=== PATIENT | male | born 1955 | race Caucasian/White ===

== ENCOUNTER 2023-06-30 23:36 | Emergency (ER) | payer OTHER, SELFPAY ==
[2023-06-30 23:44] VITALS: BP 127/80; PULSE 86; RESP 16; TEMP 36.6; O2SAT 97
--- NOTE | 2023-06-30 23:57 | PC.NURSE ---
Pt. woke up this AM with redness to left cheek area, states into this evening swelling noted to left neck and behind ear. states pt. has had problems with dry ears but has not had any other issues. Pt. states took Benadryl earlier today for redness with no relief. Pt. resting in bed with at bedside. pt. denies any needs at this time.
[2023-07-01] MEDS: METHYLPREDNISOLONE SOD SUCC PF 125 MG/2 ML VIAL IVP (00:33)
[2023-07-01] MEDS: CLINDAMYCIN PHOSPHATE/D5W 900 MG/50 ML PIGGYBACK 100 MG IV (00:35)
[2023-07-01 00:44] LABS: Basophils Absolute Auto 0.1 10^3/uL (0.0-0.1); Basophils Percent Auto 0.6 % (0.2-2.0); Eosinophils Absolute Auto 0.1 10^3/uL (0.0-0.7); Eosinophils Percent Auto 1.1 % (0.9-7.0); Hematocrit 41.8 % (42.0-54.0); Hemoglobin 13.7 g/dL (14.0-18.0); Immature Granulocytes Abs Auto 0.03 10^3/uL (0.00-0.03); Immature Granulocytes Pct Auto 0.3 % (0.0-0.5); Lymphocytes Absolute Auto 1.8 10^3/uL (1.2-3.8); Lymphocytes Percent Auto 18.2 % (20.5-60.0); Mean Corpuscular HGB Conc 32.8 g/dL (29.9-35.2); Mean Corpuscular Hemoglobin 27.8 pg (25.9-34.0); Mean Corpuscular Volume 84.8 fL (80.0-94.0); Mean Platelet Volume 10.3 fL (9.5-13.5); Monocytes Absolute Auto 1.4 10^3/uL (0.3-0.8); Monocytes Percent Auto 13.8 % (1.7-12.0); Neutrophils Absolute Auto 6.5 10^3/uL (1.4-6.5); Platelet Count 265 10^3/uL (150-450); Red Blood Count 4.93 10^6/uL (4.70-6.10); Red Cell Distribution Width 13.6 % (11.0-15.0); White Blood Count 9.9 10^3/uL (4.0-11.0)
[2023-07-01 00:51] LABS: Erythrocyte Sedimentation Rate 43 mm/hr (<=20)
[2023-07-01 01:00] LABS: Anion Gap 13.8; BUN Creatinine Ratio 11.2; Calcium 9.2 mg/dL (8.5-10.1); Chloride 105 mmol/L (98-107); Estimated GFR (African America >60 (>=60); Estimated GFR (Non-African Ame >60 (>=60); Glucose 113 mg/dL (74-106); Potassium 3.8 mmol/L (3.5-5.1); Sodium 139 mmol/L (136-145)
[2023-07-01 01:01] LABS: C Reactive Protein 3.68 mg/dL (<=0.50)
--- NOTE | 2023-07-01 01:04 | ED.GENADUL1 ---
HPI - General Adult General Chief complaint: Skin/Abscess/Foreign Body Stated complaint: EAR PAIN Time Seen by Provider: 06/30/23 23:45 Source: patient and family Mode of arrival: walk-in History of Present Illness HPI narrative: Patient developed pain and redness behind the left ear overnight and then the redness spread rapidly throughout the day. He now has redness to the left scalp, left cheek and upper left neack laterally. The external ear has been dry and flaky for some time . No recent injury. No systemic complaints such as fever or vomiting. He is not a diabetic. He took some Benadryl thinking that it might be an allergic reaction of some kind but nothing happened after taking the bendaryl/no improvement. Related Data Home Medications Medication Instructions Recorded Confirmed No Known Home Medications 06/30/23 06/30/23 Previous Rx's Medication Instructions Recorded clindamycin HCl 150 mg capsule 450 mg (3 x 150 mg) PO TID 7 days 07/01/23 #63 caps Allergies Allergy/AdvReac Type Severity Reaction Status Date / Time No Known Drug Allergies Allergy Verified 06/30/23 23:49 PFSH PFS Social History Smoking status: Never smoker Exam Narrative Exam Narrative: Nurses notes and vital signs reviewed and patient is not hypoxic. afebrile General: Well-appearing and in no apparent distress. Skin: Warm, dry, no pallor noted. Head: Normocephalic, atraumatic. Neck: Supple, non-tender. No submental or submandibular fullness, tenderness, swelling or firmness. No cervical lymphadenopathy anteriorly or posteriorly. Eye: Pupils are equal, round and EOMI. No scleral icterus. Ears, Nose, Mouth, and Throat: Left TM and EAC are clear, no posterior oropharynx erythema or nasal mucosal hypertrophy, uvula is mid-line Oral mucosa is moist Cardiovascular: Regular Rate and Rhythm without murmur, gallop or rub. Respiratory: No accessory muscle use or respiratory distress. Lungs are clear to auscultation, no wheezing, rales or rhonchi Musculoskeletal: normal ROM Neurological: A&O x4. No cranial nerve dysfunction observed. No truncal ataxia. Moves all extremities. Sensation intact. Psychiatric: Cooperative and interactive. Normal mood and affect. Constitutional Vital Signs, click to edit/add: Last Vital Signs Temp 97.8 F 06/30/23 23:44 Pulse 86 06/30/23 23:44 Resp 16 06/30/23 23:44 BP 127/80 06/30/23 23:44 Pulse Ox 97 06/30/23 23:44 O2 Del Method Room Air 06/30/23 23:55 Course Vital Signs Vital signs: Vital Signs Temperature 97.8 F 06/30/23 23:44 Pulse Rate 86 06/30/23 23:44 Respiratory Rate 16 06/30/23 23:44 Blood Pressure 127/80 06/30/23 23:44 Pulse Oximetry 97 06/30/23 23:44 Oxygen Delivery Method Room Air 06/30/23 23:44 Temperature 97.8 F 06/30/23 23:44 Pulse Rate 86 06/30/23 23:44 Respiratory Rate 16 06/30/23 23:44 Blood Pressure 127/80 06/30/23 23:44 Pulse Oximetry 97 06/30/23 23:44 Oxygen Delivery Method Room Air 06/30/23 23:55 Medical Decision Making MDM Narrative Medical decision making narrative: Peripheral IV was established and the patient received 900 mg of clindamycin IV. He also received IV Solu-Medrol. Blood was drawn and sent for testing. Patient had normal white blood cell count. Sed rate and CRP are elevated. He has normal renal function and electrolytes. Patient was discharged home with prescription for additional clindamycin. He was given strict instructions to return to the emergency department if his condition worsens. Lab Data Lab results reviewed: Yes I reviewed the patient's lab results Labs: Lab Results 07/01/23 Range/Units 00:20 WBC 9.9 (4.0-11.0) 10^3/uL RBC 4.93 (4.70-6.10) 10^6/uL Hgb 13.7 L (14.0-18.0) g/dL Hct 41.8 L (42.0-54.0) % MCV 84.8 (80.0-94.0) fL MCH 27.8 (25.9-34.0) pg MCHC 32.8 (29.9-35.2) g/dL RDW 13.6 (11.0-15.0) % Plt Count 265 (150-450) 10^3/uL MPV 10.3 (9.5-13.5) fL Neut % (Auto) 66.0 (43.0-75.0) % Lymph % (Auto) 18.2 L (20.5-60.0) % [facility] [place] [facility] % (Auto) 13.8 H (1.7-12.0) % Eos % (Auto) 1.1 (0.9-7.0) % Baso % (Auto) 0.6 (0.2-2.0) % Neut # (Auto) 6.5 (1.4-6.5) 10^3/uL Lymph # (Auto) 1.8 (1.2-3.8) 10^3/uL [facility] # (Auto) 1.4 H (0.3-0.8) 10^3/uL Eos # (Auto) 0.1 (0.0-0.7) 10^3/uL Baso # (Auto) 0.1 (0.0-0.1) 10^3/uL Abs Immat Gran (auto) 0.03 (0.00-0.03) 10^3/uL Imm/Tot Granulo (auto) 0.3 (0.0-0.5) % ESR 43 H (<=20) mm/hr Sodium 139 (136-145) mmol/L Potassium 3.8 (3.5-5.1) mmol/L Chloride 105 (98-107) mmol/L Carbon Dioxide 24.0 (21.0-32.0) mmol/L Anion Gap 13.8 BUN 12.0 (7.0-18.0) mg/dL Creatinine 1.07 (0.70-1.30) mg/dL Est GFR ( Amer) >60 (>=60) Est GFR (Non-Af Amer) >60 (>=60) BUN/Creatinine Ratio 11.2 Glucose 113 H (74-106) mg/dL Calcium 9.2 (8.5-10.1) mg/dL C-Reactive Protein 3.68 H (<=0.50) mg/dL Discharge Plan Discharge Chief Complaint: Skin/Abscess/Foreign Body Clinical Impression: Cellulitis of face, Cellulitis of head or scalp Patient Disposition: Home, Self-Care Time of Disposition Decision: 01:08 Prescriptions / Home Meds: New clindamycin HCl 150 mg capsule 450 mg PO TID 7 Days Qty: 63 0RF No Action No Known Home Medications Instructions: Cellulitis (ED) Stand Alone Forms: Portal Instructions Referrals: BO LONG [Primary Care Provider] - 1 week
== END 2023-07-01 01:39 | disposition home or self-care (01) ==
PROVIDERS: Emergency Provider Emergency Medicine; PCP Internal Medicine
DX: L03.211 Cellulitis of face (principal); L03.811 Cellulitis of head [any part, except face]
CPT/HCPCS: 36415; 80048; 85025; 85652; 86140; 99284; J2930